=== PATIENT | female | born 1990 | race American Indian/Alaskan Native ===

== ENCOUNTER 2019-05-01 15:40 | Emergency (ER) | payer SELFPAY ==
[2019-05-01 15:47] VITALS: BP 122/67
== END 2019-05-01 16:00 | disposition left against medical advice (07) ==
LOC: ED 15:40
DX: R42 Dizziness and giddiness (principal); Z53.21 Procedure and treatment not carried out due to patient leaving prior to being seen by health care provider

== ENCOUNTER 2019-10-28 06:23 | Outpatient (CLI) | payer MEDICAID ==
[2019-10-28 07:21] VITALS: BP 127/79
[2019-10-28] MEDS ORDERED: LACTATED RINGERS 500 ML IV ONE (07:44)
[2019-10-28] MEDS ORDERED: ONDANSETRON 4 MG/2 ML INJ IV PRN (10:30)
[2019-10-28 11:00] LABS: Alanine Aminotransferase 8 units/L (7-56); Albumin 3.3 g/dL (3.9-5); BUN/Creatinine Ratio 10; Blood Urea Nitrogen 5 mg/dL (7-17); Calcium 9.3 mg/dL (8.4-10.2); Hemolysis Index 1
[2019-10-28] MEDS ORDERED: LACTATED RINGERS 1,000 ML IV ONE (11:00)
== END 2019-10-28 13:46 | disposition home or self-care (01) ==
LOC: TRG 06:23 → APU 06:24 → TRG 13:46
PROVIDERS: ATTEND Obstetrics & Gynecology
DX: O21.2 Late vomiting of pregnancy (principal); O47.03 False labor before 37 completed weeks of gestation, third trimester; Z3A.31 31 weeks gestation of pregnancy; Z87.891 Personal history of nicotine dependence
CPT/HCPCS: 36415; 59025; 80053; 96365; 96366; J2405; J7120; 96360; 96361; 96372